=== PATIENT | female | born 1995 | race American Indian/Alaskan Native ===

== ENCOUNTER 2018-03-24 13:40 | Outpatient (CLI) | payer OTHER | END 2018-03-24 19:30 | disposition home or self-care (01) | LOC: OBS/DEL 13:40 | DX: O60.03 Preterm labor without delivery, third trimester (principal); Z34.83 Encounter for supervision of other normal pregnancy, third trimester ==

== ENCOUNTER 2018-04-03 18:59 | Outpatient (CLI) | payer OTHER | END 2018-04-04 09:35 | disposition home or self-care (01) | LOC: OBS/DEL 18:59 | DX: O47.1 False labor at or after 37 completed weeks of gestation (principal); Z34.83 Encounter for supervision of other normal pregnancy, third trimester ==

== ENCOUNTER 2018-04-07 09:17 | Inpatient (IN) | payer OTHER ==
[~2018-04-07] VITALS: Ht 160 cm; Wt 69.4 kg
== END 2018-04-09 11:29 | disposition home or self-care, planned readmission (81) | DRG 807 ==
LOC: OBS/DEL 09:17 → OB/GYN 10:24 → LDR 10:24 → OB/GYN 17:21
PROVIDERS: ADMIT Obstetrics & Gynecology
PROC: 10E0XZZ Delivery of Products of Conception, External Approach (ICD-10-PCS; principal; 2018-04-07)
PROC: 0KQM0ZZ Repair Perineum Muscle, Open Approach (ICD-10-PCS; 2018-04-07)
PROC: 3E033VJ Introduction of Other Hormone into Peripheral Vein, Percutaneous Approach (ICD-10-PCS; 2018-04-07)
PROC: 4A1HXCZ Monitoring of Products of Conception, Cardiac Rate, External Approach (ICD-10-PCS; 2018-04-07)
DX: O70.1 Second degree perineal laceration during delivery (principal); Z37.0 Single live birth; Z3A.38 38 weeks gestation of pregnancy